=== PATIENT | male | born 1975 | race Hispanic/Latino ===

== ENCOUNTER 2024-01-22 21:44 | Emergency (ER) | payer OTHER ==
[2024-01-22] MEDS ORDERED: traMADol HCl 50 MG TAB ONE (22:37)
[2024-01-22] MEDS ORDERED: Amlodipine 5 MG TAB ONE (22:53)
== END 2024-01-22 23:17 | disposition home or self-care (01) ==
LOC: MADERS 21:44
DX: S01.81XA Laceration without foreign body of other part of head, initial encounter (principal); I10 Essential (primary) hypertension; W18.30XA Fall on same level, unspecified, initial encounter
CPT/HCPCS: 12002; 70450